=== PATIENT | male | born 1990 | race Caucasian/White ===

== ENCOUNTER 2016-10-10 17:59 | Emergency (ER) | payer OTHER ==
[2016-10-10 18:33] VITALS: BP 146/89; PULSE 97; RESP 17; TEMP 98.1; O2SAT 95
[2016-10-10] MEDS ORDERED: OXYCODONE/APAP 5/325 TAB PO ONE (19:26)
[2016-10-10] MEDS ORDERED: fentaNYL 100 MCG/2 ML INJ ONE (19:55)
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
[2016-10-10] MEDS ORDERED: HYDROCOD/APAP 5/325 PREPACK#6 BTL TAKEHOME ONE (20:36)
== END 2016-10-10 21:25 | disposition home or self-care (01) ==
PROC: 0SSGXZZ Reposition Left Ankle Joint, External Approach (ICD-10-PCS; principal; 2016-10-10)
DX: S93.05XA Dislocation of left ankle joint, initial encounter (principal); S82.852A Displaced trimalleolar fracture of left lower leg, initial encounter for closed fracture; V18.0XXA Pedal cycle driver injured in noncollision transport accident in nontraffic accident, initial encounter; Y99.8 Other external cause status; Y93.89 Activity, other specified
CPT/HCPCS: J3010

== ENCOUNTER 2016-10-17 12:18 | Day surgery (SDC) | payer OTHER ==
[~2016-10-17 12:18] MED LIST: BACITRACIN 50,000 UNITS/10 ML SYR IRR ONE; BUPIVACAINE 0.5% 30 ML SDV ONE; POLYMYXIN B SULFATE 500,000 UNIT/10 ML SYR IRR ONE
[2016-10-17] MEDS ORDERED: LIDOCAINE 1% 2 ML INJ ONE (12:33)
[2016-10-17] MEDS ORDERED: CEFAZOLIN 1 GM/DEXTROSE/50 ML BAG IV ONE (12:33)
[2016-10-17] MEDS ORDERED: LR 1,000 ML IV ONE (12:50)
[2016-10-17] MEDS ORDERED: LIDOCAINE 1% 5 ML SDV ID PRN (12:50)
[2016-10-17] MEDS ORDERED: fentaNYL 100 MCG/2 ML INJ ONE ×3 (13:42→15:28)
[2016-10-17] MEDS ORDERED: PROPOFOL 200 MG/20 ML VIAL ONE (13:42)
[2016-10-17] MEDS ORDERED: ONDANSETRON 4 MG/2 ML VIAL ONE (13:43)
[2016-10-17] MEDS ORDERED: METOCLOPRAMIDE 10 MG/2 ML VIAL ONE (13:43)
[2016-10-17] MEDS ORDERED: LIDOCAINE 2% 5 ML SDV ONE (13:43)
[2016-10-17] MEDS ORDERED: ROPIVACAINE HCL 150 MG/30 ML INJ ONE (13:43)
[2016-10-17] MEDS ORDERED: MIDAZOLAM 2 MG/2 ML VIAL ONE (13:45)
[2016-10-17] MEDS ORDERED: MEPERIDINE 25 MG/ML SYR ONE (15:31)
[2016-10-17] MEDS ORDERED: HYDROCODONE/APAP 5/325 TAB ONE ×2 (16:21→16:34)
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
== END 2016-10-17 17:15 | disposition home or self-care (01) ==
LOC: FSGY 12:18
PROVIDERS: ATTEND Orthopaedic Surgery
PROC: 0QSK04Z Reposition Left Fibula with Internal Fixation Device, Open Approach (ICD-10-PCS; principal; 2016-10-17 14:15)
PROC: 0QSH04Z Reposition Left Tibia with Internal Fixation Device, Open Approach (ICD-10-PCS; principal; 2016-10-17 14:15)
DX: S82.852A Displaced trimalleolar fracture of left lower leg, initial encounter for closed fracture (principal); Y93.55 Activity, bike riding; V19.9XXA Pedal cyclist (driver) (passenger) injured in unspecified traffic accident, initial encounter
CPT/HCPCS: C1713; J0690; J2250; J2405; J2704; J2765; J2795; J3010